=== PATIENT | male | born 1970 | race African-American/Black ===

== ENCOUNTER 2017-10-02 13:29 | Emergency (ER) | payer OTHER ==
[~2017-10-02] VITALS: Ht 177.8 cm; Wt 97.6 kg
[2017-10-02] MEDS ORDERED: MEDDOSEPAK PO (13:46)
[2017-10-02 13:52] VITALS: BP 130/79
== END 2017-10-02 14:18 | disposition home or self-care (01) | DRG 156 ==
LOC: ED 13:29
PROC: 09C47ZZ Extirpation of Matter from Left External Auditory Canal, Via Natural or Artificial Opening (ICD-10-PCS; principal; 2017-10-02)
DX: T16.2XXA Foreign body in left ear, initial encounter (principal); L30.9 Dermatitis, unspecified; F17.210 Nicotine dependence, cigarettes, uncomplicated; X58.XXXA Exposure to other specified factors, initial encounter

== ENCOUNTER 2017-11-02 15:21 | Observation (INO) | payer OTHER ==
[~2017-11-02] VITALS: Ht 177.8 cm; Wt 99.8 kg
[~2017-11-02 15:21] MED LIST: MEDDOSEPAK PO
--- NOTE | 2017-11-02 15:37 | NUR ---
PT ASSISTED WITH MULTIPLE PERSONS AND PUT IN WHEELCHAIR AT [facility] AND BROUGHT DIRECTLY TO RM 9 BY ER STAFF. COMFORT MEASURES GIVEN AND MONITORING INITIATED. ANKLE BRACELET PRESENT
--- NOTE | 2017-11-02 15:38 | NUR ---
IVS X2 INITIATED AN IV FLUID BOLUS INITIATED. PT ALERT BUT LETHARGIC. 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 PT ABLE TO ANSWER SOME QUESTIONS AT TIEM VOICE TRAILS OFF AND PT UNABLE TO COMPLETE SENTENCES. PT HAS GENERALIZED BODY WEAKNESS. PUPILS EQUAL AND BRISK.
[2017-11-02 15:50] LABS: HEMATOCRIT 51.4 % (39.0-50.0); HEMOGLOBIN 17.6 g/dl (14.0-18.0); IMMATURE GRANULOCYTES 0.6 % (0.0-5.0); MEAN CELL VOLUME 98.8 fL CALC (80.0-100.0); MEAN CORPUSCULAR HGB 33.8 pG CALC (26.0-32.0); MEAN CORPUSCULAR HGB CONC 34.2 g/L CALC (32.0-36.0); NEUT# 3.92 thou/uL (1.82-7.42); RED BLOOD COUNT 5.2 mill/uL (4.70-6.10); RED CELL DISTRI WIDTH 11.4 % (11.5-15.5)
--- NOTE | 2017-11-02 16:35 | NUR ---
PT RETURNED FROM CT SCAN. PT A&O X3 AND IS TALKING ON PHONE AT THIS TIME. PT REPORTS GENERALIZED WEAKNESS. IV FLUIDS INFUSING WITH NO DIFFICULY. CALL INIGUEZ WITHIN REACH.
[2017-11-02 16:54] LABS: URINE BILIRUBIN - DIPSTICK NEGATIVE (NEGATIVE); URINE BLOOD DIPSTICK NEGATIVE (NEGATIVE); URINE COLOR YELLOW; URINE GLUCOSE - DIPSTICK NEGATIVE (NEGATIVE); URINE KETONE TRACE mg/dL (NEGATIVE); URINE LEUK ESTERASE NEGATIVE (NEGATIVE); URINE NITRITE - DIPSTICK NEGATIVE (Negative); URINE PROTEIN - DIPSTICK TRACE mg/dL (NEG-TRACE); URINE SPECIFIC GRAVITY 1.025; URINE UROBILINOGEN - DIPSTICK 0.2 E.U./dL (0.2)
[2017-11-02 16:55] LABS: URINE CLARITY CLEAR
[2017-11-02 16:59] LABS: BARBITURATES NEGATIVE (NEGATIVE); COCAINE POSITIVE (NEGATIVE); METHADONE NEGATIVE (NEGATIVE); OXCYCODONE NEGATIVE (NEGATIVE); TETRAHYDROCANNABIONOL POSITIVE (NEGATIVE); TRICYLIC ANTIDEPRESSANTS NEGATIVE (NEGATIVE)
--- NOTE | 2017-11-02 17:01 | NUR ---
PT ALERT AND ORIENTED X3. PT GIVEN CORDLESS PHONE AND ATTEMPTED TO CONTACT MOTHER. PT STATES HE FEELS MUCH BETTER BUT "MY WHOLE BODY FEELS SO HEAVY". VSS.
[2017-11-02 17:10] LABS: ALBUMIN 4.6 g/dL (3.2-5.0); ALKALINE PHOSPHATASE 91 u/l (38-126); ANION GAP 20 (6-22 (CALC)); BILIRUBIN, TOTAL 0.5 mg/dL (0.0-1.4); BUN 18 mg/dL (9-20); BUN/CREATININE RATIO 11 (12-20 (CALC)); CARBON DIOXIDE 17 mmol/l (22-30); CHLORIDE 109 mmol/l (95-108); CPK 569 u/l (52-200); CREATININE 1.7 mg/dL (0.7-1.3); GFR 44 ML/MIN (>=60 (CALC)); GFR FOR AFR.AMER. 53 ML/MIN (>=60 (CALC)); POTASSIUM 4.1 mmol/l (3.5-5.1); SGOT/AST 38 u/l (17-59); SGPT/ALT 41 u/l (21-72); SODIUM 142 mmol/l (137-146); TOTAL PROTEIN 7.6 g/dL (6.3-8.2)
[2017-11-02 17:12] LABS: ETHYL ALCOHOL 0 mg/dl (0-30)
--- NOTE | 2017-11-02 17:45 | NUR ---
SBAR PRINTED TO FLOOR
--- NOTE | 2017-11-02 17:51 | NUR ---
PT REQUESTING REMOVAL OF IV TO LT A/C. IV DCED. BP 166/114. PT STATES HE HAS HTN BUT DOESNT TAKE MEDS OFTEN. PT CONSUMED 100% OF MEAL TRAY. ALERT AND APPROPRIATE.
--- NOTE | 2017-11-02 18:34 | NUR ---
CALLED REPORT TO FIFI LLOYD MS2
--- NOTE | 2017-11-02 18:50 | NUR ---
TRANSPORTED TO [facility] VIA IN STABLE CONDITION.
--- NOTE | 2017-11-02 18:50 | NUR ---
PT ARRIVED TO UNIT VIA ER STAFF VIA WHEELCHAIR; ALERT AND ORIENTED. AMBULATED TO BED INDEPENDENTLY WITH STEADY GAIT. INITIALLY C/O HEADACHE 08/01; COOL PACK APPLIED. RESPIRATIONS EVEN AND UNLABORED ON ROOM AIR. OREINTED TO ROOM AND CALL LIGHT SYSTEM. PLAN OF CARE DISCUSSED. PT ENCOURAGED TO VERBALIZE CONCERNS. STATES UNDERSTANDING. SAFETY MEASURES IN PLACE. CALL LIGHT WITHIN REACH.
[2017-11-02 19:11] VITALS: BP 145/87
[2017-11-02 23:35] VITALS: BP 126/78
--- NOTE | 2017-11-02 23:50 | NUR ---
PT RESTING IN BED WITH EYES CLOSED; AWAKENS SPONTANEOUSLY. VS STABLE. STATES TAHT HIS HEADACHE IS IMPROVED. RESPIRATIONS EVEN AND UNLABORED. IV FLUIDS INFUSING WITHOUT DIFFICULTY; IV SITE APPEARS HEALTHY. PT IS INDEPENDENT IN ROOM; USES CALL LIGHT PRN FOR ASSISTANCE. SAFETY MEASURES IN PLACE. CALL LIGHT WITHIN REACH.
[2017-11-03 04:00] VITALS: BP 142/81
--- NOTE | 2017-11-03 04:00 | NUR ---
PT ASLEEP WITH NO SIGNS OF DISTRESS. NO CHANGES IN CONDITION THROUGHOUT THE NIGHT. REMAINS ALERT AND ORIENTED. SAFETY MEASURES IN PLACE. CALL LIGHT WITHIN REACH.
[2017-11-03 05:18] LABS: IMMATURE GRANULOCYTES 0.4 % (0.0-5.0); MEAN CELL VOLUME 102.1 fL CALC (80.0-100.0); MEAN CORPUSCULAR HGB 34.3 pG CALC (26.0-32.0); MEAN CORPUSCULAR HGB CONC 33.6 g/L CALC (32.0-36.0); NEUT# 3.11 thou/uL (1.82-7.42); RED BLOOD COUNT 4.37 mill/uL (4.70-6.10); RED CELL DISTRI WIDTH 11.4 % (11.5-15.5)
[2017-11-03 05:19] LABS: HEMATOCRIT 44.6 % (39.0-50.0)
[2017-11-03 05:36] LABS: ANION GAP 12 (6-22 (CALC)); BUN 16 mg/dL (9-20); BUN/CREATININE RATIO 12 (12-20 (CALC)); CHLORIDE 108 mmol/l (95-108); CREATININE 1.3 mg/dL (0.7-1.3); GFR 60 ML/MIN (>=60 (CALC)); GFR FOR AFR.AMER. > 60 ML/MIN (>=60 (CALC)); POTASSIUM 4.2 mmol/l (3.5-5.1); SODIUM 141 mmol/l (137-146)
[2017-11-03 05:45] LABS: CARBON DIOXIDE 25 mmol/l (22-30)
[2017-11-03 08:10] VITALS: BP 154/86
--- NOTE | 2017-11-03 08:10 | NUR ---
RECEIVED PT IN HIGH FOWLERS POSITION,ALERT,BREATH SOUNDS ARE CLEAR, BILATERALLY, NO C/O SOB, HR IS REG, PULSES ARE STRONG X4, ABD IS SOFT WITH ACTIVE BS. IV SITE IS FREE FROM REDNESS OR EDEMA. TELE MONITOR IN PLACE.
--- NOTE | 2017-11-03 10:05 | NUR ---
PT SIGNED OUT AMA . DID NOT WANT TO WAIT FOR THE DR TO COME. STATED" I TOLD THEM I WAS LEAVING , WAITING SINCE 9AM". PT VERY ACTIVE AND STATED" I NEED TO GO TO WORK". ANKLET BRACELET IN PLACE.
== END 2017-11-03 10:00 | disposition left against medical advice (07) | DRG 558 ==
LOC: ED 15:21 → ED-I 17:23 → ED 17:50 → ED-I 17:51 → MS2 18:32
PROVIDERS: Emergency Medicine; ADMIT Internal Medicine; ATTEND Internal Medicine
DX: M62.82 Rhabdomyolysis (principal); F17.210 Nicotine dependence, cigarettes, uncomplicated; F19.10 Other psychoactive substance abuse, uncomplicated; X30.XXXA Exposure to excessive natural heat, initial encounter; Y93.H3 Activity, building and construction; Y92.9 Unspecified place or not applicable; Z91.19 Patient's noncompliance with other medical treatment and regimen
CPT/HCPCS: G0378